=== PATIENT | female | born 1950 | race Caucasian/White ===

== ENCOUNTER 2018-03-15 14:05 | Outpatient (CLI) | payer MEDICARE, BC | END 2018-03-15 14:06 | disposition home or self-care (01) | LOC: BICMAMMO 14:05 | DX: Z12.31 Encounter for screening mammogram for malignant neoplasm of breast (principal) | CPT/HCPCS: 77063; 77067 ==

== ENCOUNTER 2023-11-09 09:02 | Outpatient (CLI) | payer MEDICARE, BC ==
[2023-11-09] MEDS ORDERED: E-Z-HD 98% W/W 340GM BOT (x-ray ONLY) ONE (09:08)
[2023-11-09] MEDS ORDERED: Barium Sulfate 96% 176 GM BOT (xray ONLY) ONE (09:08)
== END 2023-11-09 09:03 | disposition home or self-care (01) ==
LOC: RAD 09:02
PROVIDERS: ATTEND Physician Assistant Medical
DX: K21.00 Gastro-esophageal reflux disease with esophagitis, without bleeding (principal); R13.10 Dysphagia, unspecified
CPT/HCPCS: 74220